=== PATIENT | male | born 1980 | race Caucasian/White ===

== ENCOUNTER 2018-05-19 17:28 | Emergency (ER) | payer SELFPAY ==
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
[2018-05-19 18:01] VITALS: BP 123/80
[2018-05-19] MEDS ORDERED: Cyclobenzaprine TAB* 10 MG PO ONE (18:18)
[2018-05-19] MEDS ORDERED: Ketorolac INJ* 60 MG/2 ML VIAL IM ONE (18:18)
--- NOTE | 2018-05-20 08:14 | UC ---
Discharge - Sign-Out/Discharge Documenting (check all that apply): Post-Discharge Follow Up All imaging exams completed and their final reports reviewed: Yes - Discharge Plan Condition: Stable Disposition: HOME Prescriptions: Cyclobenzaprine TAB* [Flexeril 10 MG TAB*] 10 mg PO TID PRN #10 tab PRN Reason: Spasms Naproxen [Naprosyn 500 mg tab] 500 mg PO BID 5 Days #10 tablet Patient Education Materials: Low Back Strain (ED) Referrals: KAR Roberson [Medical Doctor] - Additional Instructions: FOLLOW UP IF NOT BETTER IN 5-7 DAYS OR SOONER IF WORSE. - Billing Disposition and Condition Condition: STABLE Disposition: Home
== END 2018-05-19 19:06 | disposition home or self-care (01) ==
LOC: UCCORT 17:28
DX: M54.5 Low back pain (principal); V57.5XXA Driver of pick-up truck or van injured in collision with fixed or stationary object in traffic accident, initial encounter; Y93.89 Activity, other specified; Y92.9 Unspecified place or not applicable
CPT/HCPCS: 72100; 96372; 99202; A9270-GY; G0463; J1885

== ENCOUNTER 2019-10-09 09:20 | Emergency (ER) | payer SELFPAY ==
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
[2019-10-09 09:38] VITALS: BP 123/77
== END 2019-10-09 10:23 | disposition home or self-care (01) ==
LOC: UCCORT 09:20
DX: K04.7 Periapical abscess without sinus (principal); H57.11 Ocular pain, right eye; F17.210 Nicotine dependence, cigarettes, uncomplicated
CPT/HCPCS: 70200; 99212; G0463